=== PATIENT | male | born 1985 | race Caucasian/White ===

== ENCOUNTER 2018-09-22 09:28 | Emergency (ER) | payer SELFPAY ==
[2018-09-22 09:56] VITALS: BP 136/83
--- NOTE | 2018-09-22 10:18 | UC ---
Skin Complaint HPI - HPI Summary HPI Summary: 32-year-old male comes in with a chief complaint of swelling in the right axillary region. 4 days ago started as a pimple is gradually gotten bigger. It is tender to palpation there is some erythema in the area. No drainage no fevers no chills. Pain is worse with palpation and movement of the area. Better with not moving the area. No history of MRSA. - History of Current Complaint Chief Complaint: UCSkin Time Seen by Provider: 09/22/18 10:00 Stated Complaint: LUMP IN ARMPIT Pain Intensity: 5 - Allergy/Home Medications Allergies/Adverse Reactions: Allergies Allergy/AdvReac Type Severity Reaction Status Date / Time No Known Allergies Allergy Verified 09/22/18 09:51 PMH/Surg Hx/FS Hx/Imm Hx Previously Healthy: Yes - Surgical History Surgical History: Yes Surgery Procedure, Year, and Place: appy - Family History Known Family History: Positive: Non-Contributory - Social History Alcohol Use: Rare Substance Use Type: Marijuana Substance Use Comment - Amount & Last Used: daily Smoking Status (MU): Heavy Every Day Tobacco Smoker Type: Cigarettes Amount Used/How Often: 1 PPD Review of Systems All Other Systems Reviewed And Are Negative: Yes Constitutional: Positive: Negative Skin: Positive: Other - SEE HPI Eyes: Positive: Negative ENT: Positive: Negative Respiratory: Positive: Negative Cardiovascular: Positive: Negative Gastrointestinal: Positive: Negative Motor: Positive: Negative Neurovascular: Positive: Negative Musculoskeletal: Positive: Negative Neurological: Positive: Negative Psychological: Positive: Negative Is Patient Immunocompromised?: No Physical Exam Triage Information Reviewed: Yes Appearance: Well-Appearing, No Pain Distress, Well-Nourished Vital Signs: Initial Vital Signs Temp 98.4 F 09/22/18 09:51 Pulse 72 09/22/18 09:51 Resp 16 09/22/18 09:51 BP 136/83 09/22/18 09:51 Pulse Ox 98 09/22/18 09:51 Vital Signs Reviewed: Yes Eye Exam: Normal Eyes: Positive: Conjunctiva Clear Neck: Positive: Supple Respiratory: Positive: No respiratory distress Musculoskeletal: Positive: Strength Intact, ROM Intact Neurological: Positive: Alert, Muscle Tone Normal Psychological: Positive: Age Appropriate Behavior Skin: Positive: Other - Right axillary subcutaneous 2 cm diameter swelling that is tender to palpation. There is erythema on the skin. No drainage. At this time there is no area of fluctuance for incision and drainage. Course/Dx - Course Course Of Treatment: At this time there is not an area of fluctuance for incision and drainage. I let the patient know that if he gets worse he needs to get reevaluated. - Diagnoses Provider Diagnosis: Abscess of right axilla Discharge - Sign-Out/Discharge Documenting (check all that apply): Patient Departure All imaging exams completed and their final reports reviewed: No Studies - Discharge Plan Condition: Stable Disposition: HOME Prescriptions: Cephalexin CAP* [Keflex CAP*] 500 mg PO QID #40 cap Patient Education Materials: Abscess (ED) Referrals: [facility] [place] [facility] [Outside] Additional Instructions: FOLLOW UP WITH YOUR DOCTOR IF NOT COMPLETELY IMPROVED. GET RECHECKED SOONER IF YOUR CONDITION WORSENS OR ANY QUESTIONS OR CONCERNS. - Billing Disposition and Condition Condition: STABLE Disposition: Home
== END 2018-09-22 10:21 | disposition home or self-care (01) ==
LOC: UCCORT 09:28
DX: L02.411 Cutaneous abscess of right axilla (principal); F17.210 Nicotine dependence, cigarettes, uncomplicated
CPT/HCPCS: 99202; G0463